=== PATIENT | female | born 1990 | race Caucasian/White ===

== ENCOUNTER → 2016-09-08 | Outpatient (CLI) | payer SELFPAY ==
[2016-09-08 10:19] VITALS: BMI 49.1
== END | disposition home or self-care (01) ==
LOC: MNTWWP 07:45
PROVIDERS: ATTEND Family Medicine
DX: R63.5 Abnormal weight gain (principal)
CPT/HCPCS: 97802

== ENCOUNTER → 2016-10-18 | Outpatient (CLI) | payer BC | END | disposition home or self-care (01) | LOC: LABWHC1 07:36 | PROVIDERS: ATTEND Nurse Practitioner | DX: E03.9 Hypothyroidism, unspecified (principal) | CPT/HCPCS: 36415; 84443 ==

== ENCOUNTER → 2016-12-29 | Outpatient (CLI) | payer BC | END | disposition home or self-care (01) | LOC: LABWHC1 07:38 | PROVIDERS: ATTEND Family Medicine | DX: E03.9 Hypothyroidism, unspecified (principal) | CPT/HCPCS: 36415; 84443 ==

== ENCOUNTER → 2020-06-16 | Outpatient (CLI) | payer MEDICAID ==
--- NOTE | 2020-06-16 15:38 | CONS ---
CONSULTATION DATE OF SERVICE: 06/16/2020 This 30-year-old lady has been evaluated in the Sleep Center for multiple awakenings from sleep, snoring and difficulties to initiate sleep. HISTORY OF PRESENT ILLNESS/SLEEP-WAKE EVALUATION: Usual sleep schedule is from 9:30 a.m. 2 to 5 p.m. 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 On days off from 10 p.m. to 4 a.m. The patient has difficulties falling asleep. Has TV set in bedroom. She sleeps in different position. She snores sometimes loudly and wakes up from sleep up to 6 times with nocturia. She also wakes up from sleep with episodes of choking. In the morning, she wakes up tired, falling asleep during the day, worry about her sleep. [place] Sleepiness Scale increased to 10. PAST MEDICAL HISTORY: Positive for hypertension, hypothyroidism. PAST SURGICAL HISTORY: Tonsillectomy, right wrist surgery. MEDICATIONS: Lisinopril 30 mg once a day, levothyroxine 75 mcg once a day, hydrochlorothiazide 25 mg once a day, trazodone 50 mg at bedtime, once a day. SOCIAL HISTORY: Negative for smoking or using alcohol. FAMILY HISTORY: Positive for hypertension by her father and sleep apnea by her mother. REVIEW OF SYSTEMS: Difficulties to initiate sleep, multiple awakenings from sleep. PHYSICAL EXAMINATION: GENERAL: lady without distress. VITAL SIGNS: BP 110/89, HR 90, RR 18, height 5 feet 5-1/2 inches, weight 301.4, temperature 97.3, oxygen saturation at room air 95%. HEENT: PERRLA, EOMI. Oropharynx low position of soft palate, Mallampati 3. NECK: 18- 1/2 inches in circumference. LUNGS: Clear to percussion and to auscultation. Good air exchange. No wheezing or rhonchi. HEART: S1, S2 regular. No murmurs, gallops, or rubs. ABDOMEN: Obese. EXTREMITIES: No clubbing or cyanosis. POLICY VALUE CALCULATOR: Awake, alert, and oriented X3. Cranial nerves 2 to 7 intact. There is no fasciculation or atrophy. noted. No focal deficits observed. IMPRESSION: 1. Loud snoring, awakenings from sleep 6 times with nocturia, small oropharyngeal air space, wide neck 18-1/2 inches in circumference, sleepiness, obstructive sleep apnea-hypopnea syndrome. 2. Possibly shift work sleep disorder with difficulties to initiate sleep. 3. Hypertension. 4. Hypothyroidism. 5. Status post tonsillectomy. 6. Status post right wrist surgery. PLAN: 1. Polysomnography for evaluation of patient's breathing during sleep. 2. CPAP/BiPAP titration if sleep study confirms obstructive sleep apnea-hypopnea syndrome. 3. Preferable position during sleep on the side. 4. No driving if patient feels any sleepiness. 5. I will see patient for follow up visit to explain results of testing and following plan. 6. To use dark glasses in the morning after work and before going to bed. Thank you very much for referring this patient for consultation. Sincerely, Ermias Martin MD, PhD, FAASM Diplomat of [employer] Warning Coordination Meteorologist of [facility] [place] MMODL / LUCÍAN: [id number] /
== END | disposition home or self-care (01) ==
LOC: SLEEP 13:57
PROVIDERS: ATTEND Internal Medicine
DX: G47.33 Obstructive sleep apnea (adult) (pediatric) (principal); I10 Essential (primary) hypertension; E03.9 Hypothyroidism, unspecified; Z79.899 Other long term (current) drug therapy; Z79.890 Hormone replacement therapy; Z98.890 Other specified postprocedural states
CPT/HCPCS: 99211

== ENCOUNTER → 2020-09-01 | Outpatient (CLI) | payer MEDICAID | END | disposition home or self-care (01) | LOC: EDBD 00:14 → LABMAIN 00:14 | PROVIDERS: ATTEND Specialist/Technologist Athletic Trainer | DX: R53.83 Other fatigue (principal) | CPT/HCPCS: 36415; 84443 ==

== ENCOUNTER → 2020-11-18 | Outpatient (CLI) | payer MEDICAID ==
--- NOTE | 2020-11-18 21:37 | SFUN ---
SLEEP CENTER FOLLOW UP NOTE DATE OF SERVICE: 11/18/2020. 30-year-old lady has been followed in Sleep Center for treatment of obstructive sleep apnea-hypopnea syndrome. Recently the patient had a polysomnogram which showed moderate obstructive sleep apnea and then titration which showed normalization of her breathing on CPAP. Subsequently I order for the patient CPAP equipment and today his her first visit after she was started on treatment with CPAP. The patient is able to use CPAP equipment and feels better after using CPAP. Sleeps better and feel more refreshed in the morning. Sometimes she takes her mask off during the night and she may not realize that the mask is off. 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 I discussed results of sleep studies with patient in detail. Her [place] Sleepiness Scale today is 2, which is perfect. I checked CPAP unit, pressure in the range 5 to 12 with average pressure of 11 cm of water. Usage is 23/ nights. Average usage 5.5 hours per night. Leak is 14 L/minute apnea-hypopnea index 0.9, which is perfect. MEDICATIONS: Lisinopril 30 mg once a day. Levothyroxine 75 mcg once a day. Hydrochlorothiazide 25 mg once a day. Trazodone 50 mg at bedtime. PHYSICAL EXAM: The patient in no distress. BP 130/71, HR 76, RR 15, weight 291 pounds, temperature 97.5, oxygen saturation at room air 98%. HEENT: PERRLA, EOMI. Oropharynx low position of soft palate. Mallampati 3. NECK: Supple, no JVD. Thyroid is not palpable. LUNGS: Clear to percussion and to auscultation. Good air exchange. No wheezing or rhonchi. HEART: S1, S2 regular. No murmurs, gallops, or rubs. ABDOMEN: Slightly obese. Soft and nontender. Bowel sounds are present. No organomegaly appreciated. EXTREMITIES: No clubbing or cyanosis. NEWS PRODUCTION ASSISTANT: Awake, alert, and oriented X3. Cranial nerves 2 to 7 intact. There is no fasciculation or atrophy noted. No focal deficits observed. IMPRESSION: 1. Moderate obstructive sleep apnea-hypopnea syndrome; apnea-hypopnea index 18.3 with oxygen desaturation to 84.3%, normalization of breathing on CPAP. Apnea-hypopnea index 0.92. 2. The patient feels better with CPAP. Sometimes the mask goes off in the middle of the night. 3. Hypertension. 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 5. Hypothyroidism. 6. Status post tonsillectomy. 7. Status post right wrist surgery. PLAN: 1. Patient will continue to use PAP equipment every night for the whole night. 2. Sleep hygiene with regular time in bed for at least 7-1/2 to 8 hours. 3. Precautions related to driving. No driving if feeling sleepiness. 4. I will maintain all necessary prescription for PAP supplies including mask, tube, filters. 5. Watching weight. 6. Follow-up visit in 6 months or earlier if patient has any problems. Thank you very much for allowing me to participate in management of your patient. Sincerely, Ermias Martin MD, PhD, FAASM Diplomat of [employer] Sleep Medicine Board of [employer] Supervising Law Enforcement Analyst of [facility] [place] MMMEDL / LUCÍAN: [id number] /
== END ==
LOC: SLEEP 13:22
PROVIDERS: ATTEND Internal Medicine
DX: G47.33 Obstructive sleep apnea (adult) (pediatric) (principal); I10 Essential (primary) hypertension; E03.9 Hypothyroidism, unspecified; Z90.89 Acquired absence of other organs; Z98.890 Other specified postprocedural states; Z99.89 Dependence on other enabling machines and devices; Z79.890 Hormone replacement therapy; Z79.899 Other long term (current) drug therapy; Z88.0 Allergy status to penicillin; Z91.09 Other allergy status, other than to drugs and biological substances

== ENCOUNTER → 2021-03-13 | Outpatient (CLI) | payer MEDICAID | LOC: LABMAIN 06:11 | PROVIDERS: ATTEND Specialist/Technologist Athletic Trainer | DX: Z20.822 Contact with and (suspected) exposure to COVID-19 (principal); R05.9 Cough, unspecified | CPT/HCPCS: 87635 ==

== ENCOUNTER 2021-03-21 22:27 | Emergency (ER) | payer MEDICAID ==
[2021-03-21] MEDS ORDERED: SODIUM CHLORIDE 0.9% 1,000 ML IV STA (22:57)
[2021-03-21 23:42] LABS: Basophils % (A) 1 %; Eosinophils # (A) 0.1 k/uL (0-0.7); Eosinophils % (A) 1 %; HCT 42.5 % (34.0-46.0); HGB 15.3 gm/dL (11.4-16.0); Lymphocytes # (A) 0.7 k/uL (1.0-4.8); Lymphocytes % (A) 13 %; MCHC 35.9 g/dL (31.0-37.0); MCV 94.7 fL (80.0-100.0); Mean Platelet Volume 7.8; Monocytes # (A) 0.4 k/uL (0-1.0); Monocytes % (A) 8 %; Neutrophils # (A) 4.2 k/uL (1.3-7.7); Neutrophils % (A) 77 %; Platelet Count 210 k/uL (150-450); RBC 4.49 m/uL (3.80-5.40); RDW 12.3 % (11.5-15.5); WBC 5.4 k/uL (3.8-10.6)
[2021-03-22 00:01] LABS: ALT 39 U/L (4-34); AST 45 U/L (14-36); African American GFR (CKD) >90 (>60 ml/min/1.73 sqM); Albumin 4.7 g/dL (3.5-5.0); Alkaline Phosphatase 94 U/L (38-126); Anion Gap 13 mmol/L; Blood Urea Nitrogen 14 mg/dL (7-17); Calcium 9.8 mg/dL (8.4-10.2); Carbon Dioxide 18 mmol/L (22-30); Chloride 106 mmol/L (98-107); Glucose 101 mg/dL (74-99); Magnesium 1.5 mg/dL (1.6-2.3); Non-African American GFR(CKD) >90 (>60 ml/min/1.73 sqM); Potassium 4.2 mmol/L (3.5-5.1); Sodium 137 mmol/L (137-145); Total Protein 8.4 g/dL (6.3-8.2)
[2021-03-22] MEDS ORDERED: MAGNESIUM OXIDE 400 MG TAB PO STA (00:13)
[2021-03-22 01:07] LABS: Appearance,Urine Cloudy (Clear); Bacteria,Urine Rare /hpf; Bilirubin,Urine Negative (Negative); Blood,Urine Negative (Negative); Color,Urine Yellow; Glucose,Urine (UA) Negative (Negative); Hyaline Casts,Urine 5 /lpf (0-2); Ketones,Urine 1+ (Negative); Leukocyte Esterase,Urine Negative (Negative); Mucus,Urine Many /hpf; Nitrite,Urine Negative (Negative); Protein,Urine 1+ (Negative); RBC,Urine 1 /hpf (0-5); Specific Gravity,Urine 1.035 (1.001-1.035); Squamous Epithelial Cell,Urine 11 /hpf (0-4); WBC,Urine 1 /hpf (0-5)
--- NOTE | 2021-03-22 01:23 | ED ---
Dizziness HPI - General Chief Complaint: Dizziness Stated Complaint: Hypertension Source: patient Mode of arrival: ambulatory - History of Present Illness Initial Comments: 31-year-old female patient presents to the emergency department today for evaluation of dizziness, elevated blood pressure, feeling unwell. States symptoms have been going on for the last couple of weeks on and off. States tonight she was at work when she became very hot, felt dizzy. States she feels nauseated. Denies any chest pain or shortness of breath. States that her physician did recently increase her blood pressure medication she started to 100 mg atenolol 2 days ago. She was receiving an injection of xolair for pruritis. With her last injection she did have a similar reaction and her physician is concerned that her symptoms may be related to this. Denies chance of . Tested and was negative for COVID-19. - Related Data Home Medications Medication Instructions Recorded Confirmed Drospirenone [Slynd] 4 mg PO DAILY 09/07/20 01/27/21 Levothyroxine Sodium [Synthroid] 75 mcg PO DAILY 09/07/20 01/27/21 atenoloL 100 mg PO BID 09/07/20 01/27/21 Omalizumab [Xolair] 300 mg SQ ONCE 11/04/20 01/27/21 Allergies Allergy/AdvReac Type Severity Reaction Status Date / Time nickel Allergy Rash/Hives Verified 03/21/21 23:14 Penicillins Allergy Diarrhea Verified 03/21/21 23:14 Review of Systems ROS Statement: Those systems with pertinent positive or pertinent negative responses have been documented in the HPI. ROS Other: All systems not noted in ROS Statement are negative. Past Medical History Past Medical History: Hypertension, Sleep Apnea/CPAP/BIPAP, Thyroid Disorder History of Any Multi-Drug Resistant Organisms: None Reported Past Surgical History: Adenoidectomy, Tonsillectomy Past Anesthesia/Blood Transfusion Reactions: No Reported Reaction Past Psychological History: Anxiety, Depression Smoking Status: Never smoker Past Alcohol Use History: None Reported Past Drug Use History: None Reported General Exam General appearance: alert, in no apparent distress, other (This is a well- developed, well-nourished adult female in no acute distress.) Eye exam: Present: normal appearance, PERRL, EOMI. Absent: scleral icterus, conjunctival injection, periorbital swelling ENT exam: Present: normal exam, normal oropharynx, mucous membranes moist Respiratory exam: Present: normal lung sounds bilaterally. Absent: respiratory distress, wheezes, rales, rhonchi, stridor Cardiovascular Exam: Present: regular rate, normal rhythm, normal heart sounds. Absent: systolic murmur, diastolic murmur, rubs, gallop, clicks GI/Abdominal exam: Present: soft, normal bowel sounds. Absent: distended, tenderness, guarding, rebound, rigid Neurological exam: Present: alert, oriented X3, CN II-XII intact Psychiatric exam: Present: normal affect, normal mood Skin exam: Present: warm, dry, intact, normal color. Absent: rash Course Vital Signs 03/21/21 03/22/21 03/22/21 23:15 00:51 02:21 Pulse Rate 83 83 73 Respiratory 18 19 20 Rate Blood Pressure 146/115 131/95 163/101 O2 Sat by Pulse 97 95 100 Oximetry EKG Findings - EKG Comments: EKG Findings:: EKG obtained at 2329 shows normal sinus rhythm with a ventricular rate of 69, MT interval 138, QRS duration 80, QT 436, QTc 467. No evidence of ST elevation or depression. Medical Decision Making - Medical Decision Making 31-year-old female patient presents the emergency department for evaluation of elevated blood pressure and dizziness. Physical examination is unremarkable. Labs reviewed and are unremarkable. EKG showed normal sinus rhythm. She tested negative for COVID-19. She is not . I did discuss findings and results with her. She'll be discharged. The primary care physician for recheck as soon as possible. Return parameters were discussed in detail. She verbalizes understanding and agrees with this plan. My attending is Dr. Gee. - Lab Data Result diagrams: 03/21/21 23:15 03/21/21 23:15 Lab Results 03/21/21 03/21/21 03/21/21 Range/Units 23:15 23:15 23:15 WBC 5.4 (3.8-10.6) k/uL RBC 4.49 (3.80-5.40) m/uL Hgb 15.3 (11.4-16.0) gm/dL Hct 42.5 (34.0-46.0) % MCV 94.7 (80.0-100.0) fL MCH 34.0 (25.0-35.0) pg MCHC 35.9 (31.0-37.0) g/dL RDW 12.3 (11.5-15.5) % Plt Count 210 (150-450) k/uL MPV 7.8 Neutrophils % 77 % Lymphocytes % 13 % Monocytes % 8 % Eosinophils % 1 % Basophils % 1 % Neutrophils # 4.2 (1.3-7.7) k/uL Lymphocytes # 0.7 L (1.0-4.8) k/uL Monocytes # 0.4 (0-1.0) k/uL Eosinophils # 0.1 (0-0.7) k/uL Basophils # 0.0 (0-0.2) k/uL Sodium 137 (137-145) mmol/L Potassium 4.2 (3.5-5.1) mmol/L Chloride 106 (98-107) mmol/L Carbon Dioxide 18 L (22-30) mmol/L Anion Gap 13 mmol/L BUN 14 (7-17) mg/dL Creatinine 0.65 (0.52-1.04) mg/dL Est GFR (CKD-EPI)AfAm >90 (>60 ml/min/1.73 sqM) Est GFR (CKD-EPI)NonAf >90 (>60 ml/min/1.73 sqM) Glucose 101 H (74-99) mg/dL Plasma Lactic Acid Ac 1.8 (0.7-2.0) mmol/L Calcium 9.8 (8.4-10.2) mg/dL Magnesium 1.5 L (1.6-2.3) mg/dL Total Bilirubin 1.0 (0.2-1.3) mg/dL AST 45 H (14-36) U/L ALT 39 H (4-34) U/L Alkaline Phosphatase 94 (38-126) U/L Troponin I (0.000-0.034) ng/mL Total Protein 8.4 H (6.3-8.2) g/dL Albumin 4.7 (3.5-5.0) g/dL TSH 2.780 (0.465-4.680) mIU/L Urine Color Urine Appearance (Clear) Urine pH (5.0-8.0) Ur Specific [place] (1.001-1.035) Urine Protein (Negative) Urine Glucose (UA) (Negative) Urine Ketones (Negative) Urine Blood (Negative) Urine Nitrite (Negative) Urine Bilirubin (Negative) Urine Urobilinogen (<2.0) mg/dL Ur Leukocyte Esterase (Negative) Urine RBC (0-5) /hpf Urine WBC (0-5) /hpf Ur Squamous Epith Cells (0-4) /hpf Urine Bacteria (None) /hpf Hyaline Casts (0-2) /lpf Urine Mucus (None) /hpf Urine HCG, Qual (Not Detectd) Coronavirus (PCR) (Not Detectd) 03/21/21 03/21/21 03/21/21 Range/Units 23:15 23:34 23:34 WBC (3.8-10.6) k/uL RBC (3.80-5.40) m/uL Hgb (11.4-16.0) gm/dL Hct (34.0-46.0) % MCV (80.0-100.0) fL MCH (25.0-35.0) pg MCHC (31.0-37.0) g/dL RDW (11.5-15.5) % Plt Count (150-450) k/uL MPV Neutrophils % % Lymphocytes % % Monocytes % % Eosinophils % % Basophils % % Neutrophils # (1.3-7.7) k/uL Lymphocytes # (1.0-4.8) k/uL Monocytes # (0-1.0) k/uL Eosinophils # (0-0.7) k/uL Basophils # (0-0.2) k/uL Sodium (137-145) mmol/L Potassium (3.5-5.1) mmol/L Chloride (98-107) mmol/L Carbon Dioxide (22-30) mmol/L Anion Gap mmol/L BUN (7-17) mg/dL Creatinine (0.52-1.04) mg/dL Est GFR (CKD-EPI)AfAm (>60 ml/min/1.73 sqM) Est GFR (CKD-EPI)NonAf (>60 ml/min/1.73 sqM) Glucose (74-99) mg/dL Plasma Lactic Acid Ac (0.7-2.0) mmol/L Calcium (8.4-10.2) mg/dL Magnesium (1.6-2.3) mg/dL Total Bilirubin (0.2-1.3) mg/dL AST (14-36) U/L ALT (4-34) U/L Alkaline Phosphatase (38-126) U/L Troponin I <0.012 (0.000-0.034) ng/mL Total Protein (6.3-8.2) g/dL Albumin (3.5-5.0) g/dL TSH (0.465-4.680) mIU/L Urine Color Yellow Urine Appearance Cloudy H (Clear) Urine pH 6.0 (5.0-8.0) Ur Specific [place] 1.035 (1.001-1.035) Urine Protein 1+ H (Negative) Urine Glucose (UA) Negative (Negative) Urine Ketones 1+ H (Negative) Urine Blood Negative (Negative) Urine Nitrite Negative (Negative) Urine Bilirubin Negative (Negative) Urine Urobilinogen 2.0 (<2.0) mg/dL Ur Leukocyte Esterase Negative (Negative) Urine RBC 1 (0-5) /hpf Urine WBC 1 (0-5) /hpf Ur Squamous Epith Cells 11 H (0-4) /hpf Urine Bacteria Rare H (None) /hpf Hyaline Casts 5 H (0-2) /lpf Urine Mucus Many H (None) /hpf Urine HCG, Qual Not Detected (Not Detectd) Coronavirus (PCR) (Not Detectd) 03/22/21 Range/Units 00:07 WBC (3.8-10.6) k/uL RBC (3.80-5.40) m/uL Hgb (11.4-16.0) gm/dL Hct (34.0-46.0) % MCV (80.0-100.0) fL MCH (25.0-35.0) pg MCHC (31.0-37.0) g/dL RDW (11.5-15.5) % Plt Count (150-450) k/uL MPV Neutrophils % % Lymphocytes % % Monocytes % % Eosinophils % % Basophils % % Neutrophils # (1.3-7.7) k/uL Lymphocytes # (1.0-4.8) k/uL Monocytes # (0-1.0) k/uL Eosinophils # (0-0.7) k/uL Basophils # (0-0.2) k/uL Sodium (137-145) mmol/L Potassium (3.5-5.1) mmol/L Chloride (98-107) mmol/L Carbon Dioxide (22-30) mmol/L Anion Gap mmol/L BUN (7-17) mg/dL Creatinine (0.52-1.04) mg/dL Est GFR (CKD-EPI)AfAm (>60 ml/min/1.73 sqM) Est GFR (CKD-EPI)NonAf (>60 ml/min/1.73 sqM) Glucose (74-99) mg/dL Plasma Lactic Acid Ac (0.7-2.0) mmol/L Calcium (8.4-10.2) mg/dL Magnesium (1.6-2.3) mg/dL Total Bilirubin (0.2-1.3) mg/dL AST (14-36) U/L ALT (4-34) U/L Alkaline Phosphatase (38-126) U/L Troponin I (0.000-0.034) ng/mL Total Protein (6.3-8.2) g/dL Albumin (3.5-5.0) g/dL TSH (0.465-4.680) mIU/L Urine Color Urine Appearance (Clear) Urine pH (5.0-8.0) Ur Specific [place] (1.001-1.035) Urine Protein (Negative) Urine Glucose (UA) (Negative) Urine Ketones (Negative) Urine Blood (Negative) Urine Nitrite (Negative) Urine Bilirubin (Negative) Urine Urobilinogen (<2.0) mg/dL Ur Leukocyte Esterase (Negative) Urine RBC (0-5) /hpf Urine WBC (0-5) /hpf Ur Squamous Epith Cells (0-4) /hpf Urine Bacteria (None) /hpf Hyaline Casts (0-2) /lpf Urine Mucus (None) /hpf Urine HCG, Qual (Not Detectd) Coronavirus (PCR) Not Detected (Not Detectd) Disposition Clinical Impression: Dizziness, Hypertension Disposition: HOME SELF-CARE Condition: Good Instructions (If sedation given, give patient instructions): Hypertension (ED), Dizziness (ED) Additional Instructions: Follow up with your primary care physician for recheck in 1-2 days. Discussed possibility of a Holter monitor. Return for any new, worsening, or concerning symptoms. Is patient prescribed a controlled substance at d/c from ED?: No Referrals: Suzi Leon MD [Primary Care Provider] - 1-2 days Time of Disposition: 01:36
[2021-03-22 02:22] VITALS: BP 163/101; PULSE 73; RESP 20
== END 2021-03-22 02:21 | disposition home or self-care (01) ==
LOC: EC 22:27
DX: R42 Dizziness and giddiness (principal); I10 Essential (primary) hypertension; F41.9 Anxiety disorder, unspecified; F32.A Depression, unspecified
CPT/HCPCS: 36415; 80053; 81001; 81025; 83605; 83735; 84443; 84484; 85025; 87635; 93005; 96360; 99284

== ENCOUNTER 2022-05-02 05:35 | Emergency (ER) | payer MEDICAID ==
[2022-05-02 05:42] VITALS: BP 139/88; RESP 18; TEMP 98.3
--- NOTE | 2022-05-02 06:04 | XR ---
EXAMINATION TYPE: XR ankle limited RT DATE OF EXAM: 05/02/2022 COMPARISON: NONE HISTORY: Fall. Pain TECHNIQUE: 2 views FINDINGS: There is separation of the distal tibia and fibula consistent with a ligamentous tear. Ther e is a 2 cm chip fracture of the posterior lateral distal tibia. This is a posterior malleolus fractu re. There is no dislocation. There is widening of the ankle mortise and lateral displacement of the t alus in relation to the tibia. Fibula appears intact. Talus is intact. IMPRESSION: There is large posterior malleolus chip fracture with significant ligamentous tear of the distal tibia fibular ligament. No dislocation.
[2022-05-02] MEDS ORDERED: ONDANSETRON ODT 4 MG TAB PO STA (06:08)
[2022-05-02] MEDS ORDERED: HYDROmorphone 1 MG/ML 1 ML SYRINGE IM STA (06:08)
[2022-05-02 06:18] VITALS: PULSE 100
--- NOTE | 2022-05-02 06:18 | ED ---
Lower Extremity Injury HPI - General Chief Complaint: Extremity Injury, Lower Stated Complaint: rt ankle injury Time Seen by Provider: 05/02/22 06:04 Source: patient, RN notes reviewed, old records reviewed Mode of arrival: wheelchair Limitations: no limitations - History of Present Illness Initial Comments: Pleasant, nontoxic-appearing 32-year-old female presents to the emergency room after rolling her ankle at home around 4 AM stepping off a step. Unable to bear weight. No other injuries. MD Complaint: ankle injury -: hour(s) (2) Injury: Ankle: Right Type of Injury: eversion Place: home Severity scale (1-10): 8 Improves With: immobilization Worsens With: weight bearing, movement Context: other (rolled ankle on step) - Related Data Home Medications Medication Instructions Recorded Confirmed Drospirenone [Slynd] 4 mg PO DAILY 09/07/20 01/27/21 Levothyroxine Sodium [Synthroid] 75 mcg PO DAILY 09/07/20 01/27/21 atenoloL 100 mg PO BID 09/07/20 01/27/21 Omalizumab [Xolair] 300 mg SQ ONCE 11/04/20 01/27/21 Previous Rx's Medication Instructions Recorded HYDROcodone/APAP 5-325MG [[place] 1 tab PO Q4HR PRN 3 Days #18 tab 05/02/22 5-325] Allergies Allergy/AdvReac Type Severity Reaction Status Date / Time nickel Allergy Rash/Hives Verified 05/02/22 05:39 Penicillins Allergy Diarrhea Verified 05/02/22 05:39 Review of Systems ROS Statement: Those systems with pertinent positive or pertinent negative responses have been documented in the HPI. ROS Other: All systems not noted in ROS Statement are negative. Past Medical History Past Medical History: Hypertension, Sleep Apnea/CPAP/BIPAP, Thyroid Disorder History of Any Multi-Drug Resistant Organisms: None Reported Past Surgical History: Adenoidectomy, Tonsillectomy Past Anesthesia/Blood Transfusion Reactions: No Reported Reaction Past Psychological History: Anxiety, Depression Smoking Status: Never smoker Past Alcohol Use History: None Reported Past Drug Use History: None Reported General Exam Limitations: no limitations General appearance: alert, in no apparent distress Head exam: Present: atraumatic Respiratory exam: Absent: respiratory distress, accessory muscle use Cardiovascular Exam: Present: tachycardia Right Lower Leg exam: Absent: tenderness, swelling, erythema, Homans' sign Ankle exam: Present: tenderness, swelling, ecchymosis, anterior draw sign. Absent: full ROM, deformity Foot/Toe exam: Absent: deformity, crepitus, puncture wound, tenderness at base of 5th metatarsal Neurovascular tendon exam: Present: no vascular compromise. Absent: abnormal cap refill, sensory deficit, extremity cold to touch, pallor, decreased fine/light touch, foot drop, peroneal nerve deficit Gait: unable to bear weight Neurological exam: Present: alert, oriented X3 Psychiatric exam: Present: normal affect, normal mood Skin exam: Present: warm, dry, normal color. Absent: cyanosis, diaphoretic, pallor Course Vital Signs 05/02/22 05/02/22 05:40 06:17 Temperature 98.3 F Pulse Rate 112 H 100 Respiratory 18 Rate Blood Pressure 139/88 O2 Sat by Pulse 98 Oximetry Procedures - Orthopedic Splinting/Casting Injury #1 Side: right Lower Extremity Injury Location: short leg, ankle Lower Extremity Immobilizer: Cristian wrap, synthetic pre-padded splint Other Orthopedic Equipment: crutches Medical Decision Making - Medical Decision Making X-ray interpreted by me shows a chip fracture distal posterior malleolus. Radiologist interpretation is a large posterior malleolus chip fracture with significant ligamentous tear of the distal tibia fibular ligament. Patient was given pain medication in the emergency room, placed in a short leg posterior splint and given crutches. She is neurovascularly intact prior to and post-splinting. Directed to follow up with orthopedics this week. Return if any new or concerning symptoms. Case discussed with Dr. Le. Was pt. sent in by a medical professional or institution? @ -No Did you speak to anyone other than the patient for history? @ -No Did you review nursing and triage notes? @ -Yes I agree Were old charts reviewed? @ -No Differential Diagnosis? @ -Ankle sprain, fracture, dislocation X-rays interpreted by me (1pt min.)? @ -Yes as above What testing was considered but not performed? (CT, X-rays, U/S, labs)? Why? @No What meds were considered but not given? Why? @ -No Did you discuss the management of the patient with other professionals? @ -No Did you reconcile home meds? @ -No Was smoking cessation discussed for >3mins.? @ -Not applicable Was critical care preformed (if so, how long)? @ -No Were there social determinants of health that impacted care today? How? (Homelessness, low income, unemployed, alcoholism, drug addiction, transportation, low edu. Level, literacy, decrease access to med. care, shelter, rehab)? @ -None Was there de-escalation of care discussed even if they declined? (Discuss DNR or withdrawal of care, Hospice)? @ -No What co-morbidities impacted this encounter? (DM, HTN, Smoking, COPD, CAD, Cancer, CVA, Hep., AIDS, mental health diagnosis, sleep apnea, morbid obesity)? @ -No Was patient admitted / discharged? @ -Discharged Undiagnosed new problem with uncertain prognosis? @ -[none] Drug Therapy requiring intensive monitoring for toxicity (Heparin, Nitro, Insulin, Cardizem)? @ -No Were any procedures done? @ -short leg posterior splint applied Diagnosis/symptom? @ -Distal posterior malleolous chip fracture with ligamentous tear Acute, or Chronic, or Acute on Chronic? @ -Acute Uncomplicated (without systemic symptoms) or Complicated (systemic symptoms)? @ -Uncomplicated Side effects of treatment? @ -[none] Exacerbation, Progression, or Severe Exacerbation] @ -[no] Poses a threat to life or bodily function? @ -[no] Disposition Clinical Impression: Fracture, posterior malleolus Disposition: HOME SELF-CARE Condition: Good Additional Instructions: Rest, ice, elevate and wear splint until seen by orthopedics. Use crutches. Tylenol Motrin as needed for pain or discomfort. Return to the emergency room with any new or concerning symptoms including increased pain. pallor or numbness. Prescriptions: HYDROcodone/APAP 5-325MG [[place] 5-325] 1 tab PO Q4HR PRN 3 Days #18 tab PRN Reason: Pain Is patient prescribed a controlled substance at d/c from ED?: Yes When asked, does pt state using other controlled substances?: No If prescribed controlled substance>3 days was MAPS reviewed?: Prescribed <3 Days If opioid is for acute pain is fill amount 7 days or less?: Yes Referrals: Suzi Leon MD [Primary Care Provider] - 1-2 days Maxx Cueto MD [Medical Doctor] - 1-2 days Time of Disposition: 06:50
--- NOTE | 2022-05-02 08:42 | ED ---
Disposition Clinical Impression: Fracture, posterior malleolus Disposition: HOME SELF-CARE Condition: Good Additional Instructions: Rest, ice, elevate and wear splint until seen by orthopedics. Use crutches. Tylenol Motrin as needed for pain or discomfort. Return to the emergency room with any new or concerning symptoms including increased pain. pallor or numbness. Prescriptions: HYDROcodone/APAP 5-325MG [[place] 5-325] 1 tab PO Q4HR PRN 3 Days #18 tab PRN Reason: Pain Ondansetron Odt [Zofran Odt] 4 mg PO Q8HR PRN #15 tab PRN Reason: Nausea Is patient prescribed a controlled substance at d/c from ED?: Yes When asked, does pt state using other controlled substances?: No If prescribed controlled substance>3 days was MAPS reviewed?: Prescribed <3 Days If opioid is for acute pain is fill amount 7 days or less?: No If Rx opioid, was Start Talking consent form obtained?: No Referrals: Suzi Leon MD [Primary Care Provider] - 1-2 days Maxx Cueto MD [Medical Doctor] - 1-2 days
== END 2022-05-02 07:14 | disposition home or self-care (01) ==
LOC: EC 05:35
DX: S82.391A Other fracture of lower end of right tibia, initial encounter for closed fracture (principal); S82.491A Other fracture of shaft of right fibula, initial encounter for closed fracture; I10 Essential (primary) hypertension; G47.30 Sleep apnea, unspecified; E07.9 Disorder of thyroid, unspecified; F41.9 Anxiety disorder, unspecified; F32.A Depression, unspecified; Z88.0 Allergy status to penicillin; Z91.048 Other nonmedicinal substance allergy status; Z79.890 Hormone replacement therapy; W10.9XXA Fall (on) (from) unspecified stairs and steps, initial encounter
CPT/HCPCS: 73600; 99283; 96372; 29515; J1170

== ENCOUNTER 2022-05-08 09:48 | Day surgery (SDC) | payer MEDICAID ==
[2022-05-03 16:07] VITALS: BMI 41.5
[~2022-05-08 09:48] MED LIST: DEXAMETHASONE SOD PHOSPHATE 4 MG/ML 1 ML VIAL IV ONE; HYDROmorphone 0.5 MG/0.5 ML SYRINGE IVP PRN; LACTATED RINGERS 1,000 ML IV SCH; LIDOCAINE 1% (10MG/ML) FOR IV START INTRADERMA PRN; ONDANSETRON 4 MG/2 ML VIAL IVP ONE; SCOPOLAMINE 1 MG/72 HR PATCH TRANSDERM ONE
[2022-05-08] MEDS ORDERED: SCOPOLAMINE 1 MG/72 HR PATCH TRANSDERM ONE (10:45)
[2022-05-08] MEDS ORDERED: LACTATED RINGERS 1,000 ML IV ONE ×2 (10:45→14:40)
[2022-05-08] MEDS ORDERED: DEXAMETHASONE SOD PHOSPHATE 4 MG/ML 1 ML VIAL IVP ONE (10:45)
[2022-05-08] MEDS ORDERED: ONDANSETRON 4 MG/2 ML VIAL IVP ONE (10:45)
[2022-05-08] MEDS ORDERED: MIDAZOLAM 2 MG/2 ML VIAL IVP ONE (10:52)
[2022-05-08] MEDS ORDERED: fentaNYL (PF) 50 MCG/1 ML VIAL IVP ONE (10:52)
[2022-05-08] MEDS ORDERED: fentaNYL (PF) 50 MCG/ML 2 ML AMP ONE (12:15)
[2022-05-08] MEDS ORDERED: LIDOCAINE 2% INJ 20 MG/ML (2 ML VIAL) ONE (12:15)
[2022-05-08] MEDS ORDERED: GLYCOPYRROLATE 0.2 MG/ML 2 ML VIAL ONE (12:15)
[2022-05-08] MEDS ORDERED: HYDROmorphone (PF) 1 MG/ML ONE (12:15)
[2022-05-08] MEDS ORDERED: PROPOFOL 10 MG/ML 20 ML VIAL IV ONE (12:15)
[2022-05-08] MEDS ORDERED: NEOSTIGMINE 1 MG/ML 10 ML VIAL ONE (12:15)
[2022-05-08] MEDS ORDERED: PHENYLEPHRINE-0.9% NACL SYG 1,000 MCG/10 ML SYRINGE ONE (12:15)
[2022-05-08] MEDS ORDERED: SUCCINYLCHOLINE CHLORIDE 200 MG/10 ML VIAL IV ONE (12:15)
[2022-05-08] MEDS ORDERED: ROPIVACAINE 5 MG/ML 30 ML VIAL ONE (12:15)
[2022-05-08] MEDS ORDERED: ROCURONIUM 10 MG/ML (5 ML VIAL) IV ONE (12:15)
[2022-05-08] MEDS ORDERED: DEXAMETHASONE SOD PHOSPHATE 4 MG/ML 1 ML VIAL ONE (12:15)
[2022-05-08] MEDS ORDERED: MIDAZOLAM 2 MG/2 ML VIAL ONE (12:15)
--- NOTE | 2022-05-08 14:56 | XR ---
EXAMINATION TYPE: XR ankle limited RT DATE OF EXAM: 05/08/2022 COMPARISON: NONE TECHNIQUE: Two views submitted HISTORY: Post op FINDINGS: There is postsurgical changes. Orthopedic plate noted adjacent to the fibula contains a single screw and may be slightly offset. Correlate clinically. Surgical scott noted. Postsurgical change involvi ng both the tibia and fibula. IMPRESSION: 1. Postoperative changes
--- NOTE | 2022-05-08 14:56 | FL ---
EXAMINATION TYPE: FL guidance operating room DATE OF EXAM: 05/08/2022 HISTORY: Fluoroscopy time 50 seconds of fluoroscopy provided. IMPRESSION: 1. Fluoroscopy time.
[2022-05-08 15:04] VITALS: TEMP 97
[2022-05-08 15:20] VITALS: RESP 16
--- NOTE | 2022-05-08 15:36 | P.OP ---
Date of Procedure: 05/08/22 Preoperative Diagnosis: 1. Displaced fracture of the lower end of the right tibia 2. Ruptured anterior inferior tibial-fibular ligament right ankle 3. Ruptured deltoid ligament right ankle Postoperative Diagnosis: 1. Same 2. Same 3. Same Procedure(s) Performed: 1. Open repair of fracture of weightbearing surface of the right tibia 2. Open reduction with internal fixation right syndesmotic rupture 3 Open repair anterior inferior tibial-fibular ligament right ankle 4. Open repair deltoid ligament right ankle Implants: Arthrex tight rope Arthrex fiber Todd anchors 2 Novastep Farnham 3 hole posterior malleolar plate with screws Novastep Farnham 2 hole plate with 1 screw Anesthesia: SARAH Surgeon: Denys Mcgrath Estimated Blood Loss (ml): 10 Pathology: none sent Condition: stable Disposition: PACU Description of Procedure: Prior to the patient being brought to the operative room, anesthesia administered a nerve block on the right lower extremity. The patient brought into the operating room where timeout was taken to confirm correct patient identifiers, correct laterality of surgery and correct procedure. Once the staff were in agreement with the timeout, the patient's induced and placed under general anesthesia. The patient was transferred to the operating table in the prone position. His position was satisfactory a well-padded tourniquet was placed on the right thigh and then the right leg was prepped and draped in usual manner. The right leg was exsanguinated and the tourniquet inflated to 250 mmHg. Attention directed over the posterior lateral ankle where an incision was made between the Achilles tendon and the peroneal tendons. The down to the subcutaneous tissue careful to identify, avoid, and retract any neurovascular structures and cauterize any bleeding vessels. Blunt dissection was carried down to the deep fascia which was incised exposing the muscle bellies of the peroneal tendons as well as the flexor hallucis longus. The muscles were split at the septum and then retracted medially and laterally to continue dissection down the posterior aspect of the tibia. There is a hematoma in the area of the fracture that was evacuated and debrided and removed. The posterior lateral tibial fracture was identified and freed from the superior soft tissue attachments but leaving the posterior inferior tibial-fibular ligament intact. Optic was used to bring the fragment inferiorly while simultaneously dorsiflexing the ankle and then once alignment fluoroscopy was used to make sure that it was anatomically aligned. Once alignment of the temporary guidewires placed in a fracture so didn't migrate. A posterior lateral malleolar plate was then positioned and adjusted under fluoroscopy into position was satisfactory. Temporary fixation was inserted the distal screws across the fracture were place d first line the fracture to compress both were drilled and situated avoid tibiotalar joint. Fluoroscopy confirmed proper placement of the plate as well as the initial hardware. The third screw was then placed superior to the fracture line for anti-glide purposes. Screw was placed through the plate into the tibia. Final fluoroscopic imaging showed anatomic alignment of the fracture as well as maintenance of the ankle joint. All hardware was properly positioned. There is thoroughly irrigated with anatomic saline. Deep closure was done with 2-0 Vicryl. Subcu closure done for Monocryl. Skin closure done with scott. The incision was covered with a sterile dressing the tourniquet released. At this point we will prepping the patient to be rolled onto the supine position. The bed was brought into the room and the patient was rolled onto the supine position on the bed and then transferred back to the operative room table in the supine position. The tourniquet was replaced on the right thigh and then a bump was placed underneath the right hip to internally rotate the right leg. The right leg was then prepped and draped in usual manner. The initial tourniquet time was approximately 47 minutes. The leg was again exsanguinated and the tourniquet inflated to 250 mmHg. Attention was directed over the medial malleolus were curvilinear incision was made anterior to the medial malleolus. It was deepened down the saphenous tissue careful to identify, avoid, and retract any neurovascular structures and cauterize any bleeding vessels. Blunt dissection was continued down to the deltoid ligament. The deltoid ligament had completely avulsed off the anterior surface of the medial malleolus and was within the medial gutter. A Kiko was used to remove the cortical bone of the anterior surface of the medial malleolus to help facilitate re-adhesion. Drill holes for the fiber Luis Carlos anchors were made in the medial malleolus one anterior one more distal. Anchors were inserted and impacted to proper depth. The inserters were removed and then tension placed on the suture to lock the anchor in the bone. The wound is thoroughly irrigated with antibiotic saline. The suture on the anchors was then used to capture the deltoid ligament and pull it out of the medial gutter and then with the ankle inverted repair the deltoid ligament back to the medial malleolus. Once com pleted the deep closure was completed with 2-0 Vicryl, subcu closure done with Monocryl and skin closure done with scott. Then attention was directed over the anterior lateral ankle where an incision was made over the tibial fibular articulation. Incision was deepened under the saphenous tissue careful to identify, avoid, and retract any neurovascular structures and cauterize any bleeding vessels. Dissection was continued down to the anterior inferior tibial-fibular ligament. Once identified ankle was stressed and there is significant gapping at the syndesmosis. Bluntness mentation was used to remove any splint interposing soft tissue and the syndesmotic articulation. Once completed a large clamp was placed across the ankle joint to reduce the syndesmosis. The clamp was tensioned appropriately while holding the ankle maximally dorsiflexed. The drill hole for the 4.75 swivel lock anchor was made in the tibia in the area of the insertion of the anterior inferior tibial-fibular ligament. The hole was then tapped the 4.75 swivel lock was suture was inserted. Another drill hole was made in the anterior surface lateral malleolus in the area of the ligament attachment. The hole was then tapped and then with the ankle remaining reduced the 3.5 mm anchor was inserted with the suture under proper tensioning techniques and then advanced to lock the suture in place. Once completed stabilize the syndesmosis with there is very little movement. The same incision a small 2 hole plate was positioned over the lateral malleolus and adjusted for positioning for placement of the syndesmotic repair. Temporary fixation was done first and then a drill hole for the syndesmotic repair was done through the fibula and across the tibia proximally 1.5 cm from the ankle joint. The straight lateral to medial with slight anterior angulation. The drill was advanced until it penetrated the cortex of the medial side of the tibia and then removed. The Arthrex tight rope was inserted until the button was clear the medial tibial cortex. The button was deployed and the manipulated lie flat against the tibial cortex. The field crop i farmworker was withdrawn and then with the clamp still in place and ankle maximally dorsiflexed lateral button was then tightened until was very firmly against the plate. Once completed ankle was tested for stability under direct fluoroscopic visualization. There is no abnormal movement of the syndesmosis and no gapping of the ankle joint medially. Small screws in place of the overall with 2 hole plate to lock it firmly in place. Final fluoroscopic imaging showed anatomic alignment of the ankle joint with no noted instability. The wound is irrigated thoroughly with antibiotic saline. Deep closure done with 2-0 Vicryl. Subcu closure done for Monocryl. Skin closure done with scott. Arthrex jumpstart dressings were placed over the incisions and a bulky dry dressings applied the right ankle. The tourniquet was released capillary refill return to all digits on the right foot. Patient was then placed in a well- padded, well molded plaster posterior mold/sugar tong splint. Ankle was held in neutral position until splint was dried. Then anesthesia was reversed and the patient was taken recovery with vital signs stable.
[2022-05-08 16:20] VITALS: BP 104/68; PULSE 74
--- NOTE | 2022-05-09 11:34 | P.ANPRN ---
Procedure Note - Anesthesia - Nerve Block Performed Right Popliteal Single Time Out Performed: Yes Date of Procedure: 05/08/22 Procedure Start Time: 10:51 Procedure Stop Time: 10:59 Location of Patient: PreOp Indication: Acute Post-Operative Pain, Requested by Surgeon Sedation Type: Sedate with meaningful contact maintained Preparation: Sterile Prep Position: Left Lateral Needle Types: Pajunk Needle Gauge: 21 Ultrasound used to visualize needle placement: Yes Ultrasound used to observe medication spread: Yes Blood Aspirated: No Pain Paresthesia on Injection Noted: No Resistance on Injection: Normal Image Stored and Saved: Yes Events: Uneventful and Well Tolerated (ropi .5% 20cc plus dexamethasone 4mg)
--- NOTE | 2022-05-09 11:35 | P.ANPRN ---
Procedure Note - Anesthesia - Nerve Block Performed Right Adductor Canal Single Time Out Performed: Yes Date of Procedure: 05/08/22 Procedure Start Time: 11:00 Procedure Stop Time: 11:04 Location of Patient: PreOp Indication: Acute Post-Operative Pain, Requested by Surgeon Sedation Type: Sedate with meaningful contact maintained Preparation: Sterile Prep Position: Supine Needle Types: Pajunk Needle Gauge: 21 Ultrasound used to visualize needle placement: Yes Ultrasound used to observe medication spread: Yes Blood Aspirated: No Pain Paresthesia on Injection Noted: No Resistance on Injection: Normal Image Stored and Saved: Yes Events: Uneventful and Well Tolerated (ropi .5% 20cc plus dexamethasone 4mg)
== END 2022-05-08 16:29 | disposition home or self-care (01) ==
LOC: OR 09:48
PROVIDERS: ATTEND Podiatrist
DX: S82.301A Unspecified fracture of lower end of right tibia, initial encounter for closed fracture (principal); S93.431A Sprain of tibiofibular ligament of right ankle, initial encounter; G89.18 Other acute postprocedural pain; I10 Essential (primary) hypertension; F32.A Depression, unspecified; Z88.8 Allergy status to other drugs, medicaments and biological substances; Z88.0 Allergy status to penicillin; Z79.899 Other long term (current) drug therapy; Z98.890 Other specified postprocedural states
CPT/HCPCS: 27695; 27827; 64447; 73600; J2250; J1100; J0690; J2405; J3010; 64445; 76942; 81025

== ENCOUNTER → 2022-12-18 | Outpatient (CLI) | payer MEDICAID ==
[2022-12-18 09:16] VITALS: BP 174/122; PULSE 75; RESP 16; TEMP 99
--- NOTE | 2022-12-18 14:16 | P.PAINPG ---
PQRS Measure Charge Sheet Comment: HISTORY OF PRESENT ILLNESS: 32 yr old female as a referral from [facility] presents today w severe and chronic R ankle pain secondary to post traumatic arthropathy for evaluation. Pt states pain level is provoked at 8 /10 in intensity, constant, localized in the R ankle, burning in character w shooting pain towards the R knee. Pain is provoked by walking for periods of 15 min or more. Pain is alleviated by PT x 8 wks in Sep 2022, heat, medications (Tyl, Ibu), THC products, topical, repositioning and rest. Oswestry axial pain score at 11. PMH: OA, HTN, SHA, Hypothyroid Disorder, MDD/ Anxiety PSH: RLE Surgery (2022), Adenoidectomy, Tonsillectomy SH: Negative x3 FH: Noncontributory All: See list Meds: See list REVIEW OF ORGAN SYSTEMS: CONSTITUTIONAL: No fevers or chills. No recent weight loss. NEUROLOGICAL: + numbness and tingling along the distal extremities. No seizure disorders or headaches. MUSCULOSKELETAL: + pain PSYCHIATRIC: Denies current depression or suicidal thoughts. Physical Examinations : Constitutional : Cooperative , not in acute distress . Neurologic : Cranial nerve II to XII intact. No focal neurological deficits. Psychiatric : alert & oriented x 3. Matching mood & appropriate affect. Judgment & insight intact. Musculoskeletal : Cervical Spine Motor strength in the deltoid and biceps: Normal right side. Normal Left side Motor strength biceps and the wrist extensors: Normal right side . Normal left side Motor strength in the triceps muscle: Normal right side. Normal left side Deep tendon reflexes: Normal at the biceps. Normal at Brachioradialis. Normal at triceps Vertebral body tenderness to deep palpation over Cervical facet loading test: positive b ilaterally Spurling test: positive bilaterally Neck distraction test: positive bilaterally Sacha sign: positive bilaterally Lumbar spine R ankle medial/ lateral diffuse TTP Motor strength lower extremities ,thigh and legs 5/5 Right side , 5/5 Left side Deep tendon reflexes : Normal Knee Jerk. Normal Ankle Jerk Vertebral body tenderness over Nguyen Test positive Lumbar facet Loading Test: positive Right / positive Left Range of motion of the lumbar spine Flexion 30 degrees, extension 10 degrees Straight Leg Raise test: Left/ Right positive at degree Mela test: positive right / positive left. Severe tenderness over the Sacroiliac joint on the Right / Left sides Gaenslen test: positive bilaterally Seated flexion test: positive bilaterally. Sacral spine : Severe tenderness over the Sacroiliac joint: right side / left side Range of motion: Flexion of the lumbar spine <60 degrees Range of motion: Extension of the lumbar spine <20 degrees Gaenslen's Test positive Oleg's Test positive Mela test: positive right side / left side Thigh Thrust Test Sacral Thrust Test Imaging: X-ray R ankle from 05/08/22 reviewed Assessment/ Plan : R ankle post traumatic arthropathy Recommendation of MRI R ankle re: M19.171. May need a series of injections for optimal pain relief. Risks, benefits of procedure discussed and patient verbalized understanding. Admits to aspirin or anti- coagulant use or medical history of diabetes. Protocol for discontinuation/ continuation of medications whit procedure discussed. Minimal anesthesia provided, if clinically indicated, consisting of Versed and Fentanyl. All questions answered. I have spent greater than 30 minutes on patient care today. Dr Arana was available by phone for the evaluation of this patient. The time was used to review the medical records including relevant urine studies and Prescription history (MAPs), review of the available imaging, evaluation and examination of the patient, coordination of care with the medical staff and if applicable referring physicians, as well as creation of the medical record Home Medications: Ambulatory Orders Drospirenone [Slynd] 4 mg PO DAILY 09/07/20 Desvenlafaxine Succinate [Pristiq] 100 mg PO HS 05/03/22 Dupilumab [Dupixent Pen] 300 mg SQ Q14D 05/03/22 Ibuprofen [Motrin] 800 mg PO Q8H PRN 05/03/22 Levothyroxine Sodium [Synthroid] 50 mcg PO QAM 05/03/22 atenoloL [Atenolol] 100 mg PO BID 05/03/22 hydrOXYzine pamoate [Vistaril] 100 mg PO HS PRN 05/03/22 lisinopriL [Prinivil] 20 mg PO BID 05/08/22 Controlled Substance Measures - Controlled Substance Measures Is patient prescribed a controlled substance at discharge?: No
== END ==
LOC: PNWHC3 07:38
PROVIDERS: ATTEND Specialist
DX: M79.671 Pain in right foot (principal); M12.571 Traumatic arthropathy, right ankle and foot; I10 Essential (primary) hypertension; G47.33 Obstructive sleep apnea (adult) (pediatric); E03.9 Hypothyroidism, unspecified; F41.9 Anxiety disorder, unspecified; F32.9 Major depressive disorder, single episode, unspecified; Z88.0 Allergy status to penicillin; Z91.048 Other nonmedicinal substance allergy status; Z79.899 Other long term (current) drug therapy; Z79.890 Hormone replacement therapy
CPT/HCPCS: 99211

== ENCOUNTER → 2023-01-23 | Outpatient (CLI) | payer MEDICAID ==
--- NOTE | 2023-01-28 11:01 | MR ---
MRI right ankle. HISTORY: Open reduction internal fixation for prior unstable trauma to the right ankle.. COMPARISON: None. TECHNIQUE: Multiecho multiplanar images the right ankle were obtained without contrast. FINDINGS: There are postsurgical changes including fixation screw for fracture of the posterior malleolus an d fixation screws laterally through the fibula into the distal tibia. There is complete tearing of the deltoid ligaments and of both the anterior and posterior tibial fibu lar ligaments. The anterior and posterior talofibular ligaments and calcaneal fibular ligaments are i ntact. There is mild widening of the medial aspect of the ankle mortise. There is marked cartilaginous thinn ing/absence of the articular cartilages of the tibiotalar joint and there is a small cortical defect in the mid distal tibia within the ankle mortise with the adjacent subchondral cyst. There is marked edema in the distal tibia and within the talus. The talonavicular joint is normal as is the sinus Tarsi. The Achilles tendon, the flexor tendons, extensor tendons and peroneus tendons are intact without ten osynovitis or tendon tear or acute injury. There is a small joint effusion. There is mild edema within the medial and lateral soft tissues. IMPRESSION: 1. Postsurgical changes for open reduction internal fixation for a fracture involving the posterior m alleolus and disruption of the posterior and anterior syndesmosis and of the deltoid ligament as desc ribed above. 2. Disruption of the anterior and posterior tibial fibular ligaments and of the deltoid ligaments. 3. Marked osteoarthritic change of the tibiotalar joint with marked cartilaginous thinning and defect s with subchondral cysts and extensive edema in the distal tibia and talus 4. Mild to moderate soft tissue edema in the medial and lateral soft tissues of the ankle. 5. No evidence of tendon injury.
== END | disposition home or self-care (01) ==
LOC: RADMRIMAIN 19:01
PROVIDERS: ATTEND Specialist
DX: S82.891A Other fracture of right lower leg, initial encounter for closed fracture (principal); M19.171 Post-traumatic osteoarthritis, right ankle and foot; R60.0 Localized edema

== ENCOUNTER → 2023-01-29 | Outpatient (CLI) | payer MEDICAID ==
[2023-01-29 08:33] VITALS: BP 177/138; PULSE 75; RESP 15; TEMP 98.2
--- NOTE | 2023-01-29 14:35 | P.PAINPG ---
PQRS Measure Charge Sheet Comment: HISTORY OF PRESENT ILLNESS: 32 yr old female presents today w severe and chronic R ankle pain secondary to post traumatic arthropathy for evaluation of R ankle results. Pt states pain level is provoked at 8 /10 in intensity, constant, localized in the R ankle, burning in character without shooting pain. Pain is provoked by walking for periods of 15 min or more, or palpation. Pain is alleviated by PT x 8 wks in Sep 2022, heat, medications, THC products, topical, repositioning and rest. Oswestry axial pain score at 13. Interventional procedures include Medications include Tyl, Ibu REVIEW OF ORGAN SYSTEMS: CONSTITUTIONAL: No fevers or chills. No recent weight loss. NEUROLOGICAL: + numbness and tingling along the distal extremities. No seizure disorders or headaches. MUSCULOSKELETAL: + pain PSYCHIATRIC: Denies current depression or suicidal thoughts. Physical Examinations : Constitutional : Cooperative , not in acute distress . Neurologic : Cranial nerve II to XII intact. No focal neurological deficits. Psychiatric : alert & oriented x 3. Matching mood & appropriate affect. Judgment & insight intact. Musculoskeletal : Cervical Spine Motor strength in the deltoid and biceps: Normal right side. Normal Left side Motor strength biceps and the wrist extensors: Normal right side . Normal left side Motor strength in the triceps muscle: Normal right side. Normal left side Deep tendon reflexes: Normal at the biceps. Normal at Brachioradialis. Normal at triceps Vertebral body tenderness to deep palpation over Cervical facet loading test: positive bilaterally Spurling test: positive bilaterally Neck distraction test: positive bilaterally Sacha sign: positive bilaterally Lumbar spine R ankle medial/ lateral diffuse TTP Motor strength lower extremities ,thigh and legs 5/5 Right side , 5/5 Left side Deep tendon reflexes : Normal Knee Jerk. Normal Ankle Jerk Vertebral body tenderness over Nguyen Test positive Lumbar facet Loading Test: positive Right / positive Left Range of motion of the lumbar spine Flexion 30 degrees, extension 10 degrees Straight Leg Raise test: Left/ Right positive at degree Mela test: positive right / positive left. Severe tenderness over the Sacroiliac joint on the Right / Left sides Gaenslen test: positive bilaterally Seated flexion test: positive bilaterally. Sacral spine : Severe tenderness over the Sacroiliac joint: right side / left side Range of motion: Flexion of the lumbar spine <60 degrees Range of motion: Extension of the lumbar spine <20 degrees Gaenslen's Test positive Oleg's Test positive Mela test: positive right side / left side Thigh Thrust Test Sacral Thrust Test Imaging: MRI non contrast R Ankle from 01/23/23 reviewed Assessment/ Plan : R ankle post traumatic arthropathy Recommendation of R ankle nerve block. May need a series of injections for optimal pain relief. Risks, benefits of procedure discussed and patient verbalized understanding. Admits to aspirin or anti- coagulant use or medical history of diabetes. Protocol for discontinuation/ continuation of medications whit procedure discussed. Minimal anesthesia provided, if clinically indicated, consisting of Versed and Fentanyl. All questions answered. I have spent greater than 30 minutes on patient care today. Dr Arana was available by phone for the evaluation of this patient. The time was used to review the medical records including relevant urine studies and Prescription history (MAPs), review of the available imaging, evaluation and examination of the patient, coordination of care with the medical staff and if applicable referring physicians, as well as creation of the medical record Home Medications: Ambulatory Orders Drospirenone [Slynd] 4 mg PO DAILY 09/07/20 Desvenlafaxine Succinate [Pristiq] 100 mg PO HS 05/03/22 Dupilumab [Dupixent Pen] 300 mg SQ Q14D 05/03/22 Ibuprofen [Motrin] 800 mg PO Q8H PRN 05/03/22 Levothyroxine Sodium [Synthroid] 50 mcg PO QAM 05/03/22 atenoloL [Atenolol] 100 mg PO BID 05/03/22 hydrOXYzine pamoate [Vistaril] 100 mg PO HS PRN 05/03/22 lisinopriL [Prinivil] 20 mg PO BID 05/08/22 Controlled Substance Measures - Controlled Substance Measures Is patient prescribed a controlled substance at discharge?: No
== END ==
LOC: PNWHC3 07:30
PROVIDERS: ATTEND Specialist
DX: M12.571 Traumatic arthropathy, right ankle and foot (principal); Z91.048 Other nonmedicinal substance allergy status; Z88.0 Allergy status to penicillin
CPT/HCPCS: 99211

== ENCOUNTER 2023-02-08 10:17 | Day surgery (SDC) | payer MEDICAID ==
[2023-02-06 18:23] VITALS: BMI 43.2
[~2023-02-08 10:17] MED LIST changes: -DEXAMETHASONE SOD PHOSPHATE 4 MG/ML 1 ML VIAL IV ONE; -HYDROmorphone 0.5 MG/0.5 ML SYRINGE IVP PRN; -LIDOCAINE 1% (10MG/ML) FOR IV START INTRADERMA PRN; -ONDANSETRON 4 MG/2 ML VIAL IVP ONE; -SCOPOLAMINE 1 MG/72 HR PATCH TRANSDERM ONE
[2023-02-08 10:57] VITALS: RESP 16; TEMP 97
[2023-02-08] MEDS ORDERED: ROPIVACAINE 5MG/ML 20ML VIAL ONE (11:20)
[2023-02-08] MEDS ORDERED: methylPREDNISolone ACETATE 80 MG/ML 1 ML VIAL ONE (11:20)
[2023-02-08 12:00] VITALS: BP 153/119; PULSE 80
--- NOTE | 2023-02-08 17:30 | P.PCN ---
Date of Procedure: 02/08/23 Procedure(s) Performed: preop Diagnosis : 1= chronic pain syndrome right lower extremity (ankle and foot area ) post op Diadnosis :1-chronic pain syndrome right lower extremity ankle and foot area procedure : Right ankle block ( involve block of the five nerves that innervate the ankle 1- saphenous nerve 2 -posterior tibial nerve . 3- superficial peroneal nerve 4- deep peroneal nerve 5- sural nerve under ultrasound guidance complications :none Indication for the procedure: The patient with a history of chronic right foot pain diagnosed with chronic pain syndrome right ankle and foot area patient , for this reason we discussed with the patient the option of doing right ankle block procedure risk and benefit, including but not limited to risk of infection and bleeding, and ALLERGIC reaction to the medication and not complete pain relief discussed with the patient and she agreed with the preceding . Description of the procedure; the right ankle area prepped with chlorhexidine 3 times. Then under strict sterile technique , under ultrasound guidance using the 21-gauge needle first I did the right posterior tibial nerve block the needle placed and directed anteriorly at the cephalic border of the medial malleolus, just medial to the Achilles tendon 5 ML of 0.5% ropivacaine mixed with 20 mg of Depo-Medrol injected after negative aspiration then after that , I did the right saphenous nerve block by injecting 5 ML at the location of the right saphenous nerve using 25-gauge needle 0.5% of roivacaine injected after negative aspiration, then the deep peroneal nerve block done by placing the 25-gauge needle between the tendon of the anterior tibial and the extensor Hallucis longus muscles , a total of 3 mL of 0.5% ropivacaine mixed with 20 mg of dopo-medrol injected after negative aspiration, then after that I blocked the superficial peroneal nerve , by using 25-gauge needle, the skin infiltration of the subcutaneous tissue between the medial malleolus and the lateral malleolus, finally I did the right sural nerve block by injecting 5 ML of 0.5% ropivacaine mixed with 40 mg depomedrol anterior laterally immediately lateral to the Achilles tendon at the cephalic border of the lateral malleolus the ,after negative aspirations, patient tolerated the procedure well without any complication and discharged home in stable condition , and she will follow up pain clinic in 2-4 weeks
== END 2023-02-08 12:07 | disposition home or self-care (01) ==
LOC: ORPAIN 10:17
PROVIDERS: ATTEND Specialist
DX: M79.671 Pain in right foot (principal); G89.4 Chronic pain syndrome
CPT/HCPCS: 81025; 64450; J1040; J2795

== ENCOUNTER → 2023-02-26 | Outpatient (CLI) | payer MEDICAID ==
[2023-02-26 08:36] VITALS: BP 133/79; PULSE 76; RESP 16; TEMP 98.6
--- NOTE | 2023-02-26 13:46 | P.PAINPG ---
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 Pt states she experienced 0 % pain relief x 3 wks s/p procedure. Pt states pain level is provoked at 8 /10 in intensity, constant, localized in the R ankle, burning in character without shooting pain. Pain is provoked by walking for periods of 15 min or more, or palpation. Pain is alleviated by PT x 8 wks in Sep 2022, heat, medications, THC products, topical, repositioning and rest. Interventional procedures include R Ankle NB x1 Medications include Tyl, Ibu REVIEW OF ORGAN SYSTEMS: CONSTITUTIONAL: No fevers or chills. No recent weight loss. NEUROLOGICAL: + numbness and tingling along the distal extremities. No seizure disorders or headaches. MUSCULOSKELETAL: + pain PSYCHIATRIC: Denies current depression or suicidal thoughts. Physical Examinations : Constitutional : Cooperative , not in acute distress . Neurologic : Cranial nerve II to XII intact. No focal neurological deficits. Psychiatric : alert & oriented x 3. Matching mood & appropriate affect. Judgment & insight intact. Musculoskeletal : Cervical Spine Motor strength in the deltoid and biceps: Normal right side. Normal Left side Motor strength biceps and the wrist extensors: Normal right side . Normal left side Motor strength in the triceps muscle: Normal right side. Normal left side Deep tendon reflexes: Normal at the biceps. Normal at Brachioradialis. Normal at triceps Vertebral body tenderness to deep palpation over Cervical facet loading test: positive bilaterally Spurling test: positive bilaterally Neck distraction test: positive bilaterally Sacha sign: positive bilaterally Lumbar spine R ankle medial/ lateral diffuse TTP Motor strength lower extremities ,thigh and legs 5/5 Right side , 5/5 Left side Deep tendon reflexes : Normal Knee Jerk. Normal Ankle Jerk Vertebral body tenderness over Nguyen Test positive Lumbar facet Loading Test: positive Right / positive Left Range of motion of the lumbar spine Flexion 30 degrees, extension 10 degrees Straight Leg Raise test: Left/ Right positive at degree Mela test: positive right / positive left. Severe tenderness over the Sacroiliac joint on the Right / Left sides Gaenslen test: positive bilaterally Seated flexion test: positive bilaterally. Sacral spine : Severe tenderness over the Sacroiliac joint: right side / left side Range of motion: Flexion of the lumbar spine <60 degrees Range of motion: Extension of the lumbar spine <20 degrees Gaenslen's Test positive Oleg's Test positive Mela test: positive right side / left side Thigh Thrust Test Sacral Thrust Test Imaging: MRI non contrast R Ankle from 01/23/23 reviewed Assessment/ Plan : R ankle post traumatic arthropathy Recommendation of medication mangement and followup w orthopedic surgeon. Opiate/ narcotic agreement signed 02/26/23 Pt agreed to be negative for cannabis and ETOH upon routine UDS. Use, side effects, adverse reactions and safe storage discussed. Pt acknowledged understanding. All questions answered. I have spent greater than 30 minutes on patient care today. Dr Arana was available by phone for the evaluation of this patient. The time was used to review the medical records including relevant urine studies and Prescription history (MAPs), review of the available imaging, evaluation and examination of the patient, coordination of care with the medical staff and if applicable referring physicians, as well as creation of the medical record Home Medications: Ambulatory Orders Drospirenone [Slynd] 4 mg PO DAILY 09/07/20 Desvenlafaxine Succinate [Pristiq] 100 mg PO HS 05/03/22 Dupilumab [Dupixent Pen] 300 mg SQ Q14D 05/03/22 Ibuprofen [Motrin] 800 mg PO Q8H PRN 05/03/22 Levothyroxine Sodium [Synthroid] 50 mcg PO QAM 05/03/22 atenoloL [Atenolol] 100 mg PO BID 05/03/22 hydrOXYzine pamoate [Vistaril] 100 mg PO HS PRN 05/03/22 lisinopriL [Prinivil] 20 mg PO DAILY 05/08/22 Pregabalin [Lyrica] 100 mg PO BID 30 Days #30 cap 02/26/23 Controlled Substance Measures - Controlled Substance Measures Is patient prescribed a controlled substance at discharge?: Yes When asked, does pt state using other controlled substances?: No If prescribed controlled substance>3 days was MAPS reviewed?: Yes If Rx opioid, was Start Talking consent form obtained?: Yes Was information provided regarding opioid addiction?: Yes
== END ==
LOC: PNWHC3 07:44
PROVIDERS: ATTEND Specialist
DX: M79.671 Pain in right foot (principal); M12.571 Traumatic arthropathy, right ankle and foot; Z88.0 Allergy status to penicillin; Z91.09 Other allergy status, other than to drugs and biological substances
CPT/HCPCS: 99211

== ENCOUNTER → 2023-05-16 | Outpatient (CLI) | payer MEDICAID ==
[2023-05-16 08:12] VITALS: BP 182/102; PULSE 76; RESP 15; TEMP 97.2
--- NOTE | 2023-05-16 11:02 | P.PAINPG ---
PQRS Measure Charge Sheet Comment: HISTORY OF PRESENT ILLNESS: A 33 yr old female presents today w severe and chronic R ankle pain secondary to post traumatic arthropathy for medication refills. Pt states pain level is provoked at 8 /10 in intensity, constant, localized in the R ankle, burning in character without shooting pain. Pain is provoked by walking for periods of 15 min or more, or palpation. Pain is alleviated by PT x 8 wks in Sep 2022, heat, medications, CBD products, topical, repositioning and rest. Interventional procedures include R Ankle NB x1 Medications include Tyl, Ibu REVIEW OF ORGAN SYSTEMS: CONSTITUTIONAL: No fevers or chills. No recent weight loss. NEUROLOGICAL: + numbness and tingling along the distal extremities. No seizure disorders or headaches. MUSCULOSKELETAL: + pain PSYCHIATRIC: Denies current depression or suicidal thoughts. Physical Examinations : Constitutional : Cooperative , not in acute distress . Neurologic : Cranial nerve II to XII intact. No focal neurological deficits. Psychiatric : alert & oriented x 3. Matching mood & appropriate affect. Judgment & insight intact. Musculoskeletal : Cervical Spine Motor strength in the deltoid and biceps: Normal right side. Normal Left side Motor strength biceps and the wrist extensors: Normal right side . Normal left side Motor strength in the triceps muscle: Normal right side. Normal left side Deep tendon reflexes: Normal at the biceps. Normal at Brachioradialis. Normal at triceps Vertebral body tenderness to deep palpation over Cervical facet loading test: positive bilaterally Spurling test: positive bilaterally Neck distraction test: positive bilaterally Sacha sign: positive bilaterally Lumbar spine R ankle medial/ lateral diffuse TTP Motor strength lower extremities ,thigh and legs 5/5 Right side , 5/5 Left side Deep tendon reflexes : Normal Knee Jerk. Normal Ankle Jerk Vertebral body tenderness over Nguyen Test positive Lumbar facet Loading Test: positive Right / positive Left Range of motion of the lumbar spine Flexion 30 degrees, extension 10 degrees Straight Leg Raise test: Left/ Right positive at degree Mela test: positive right / positive left. Severe tenderness over the Sacroiliac joint on the Right / Left sides Gaenslen test: positive bilaterally Seated flexion test: positive bilaterally. Sacral spine : Severe tenderness over the Sacroiliac joint: right side / left side Range of motion: Flexion of the lumbar spine <60 degrees Range of motion: Extension of the lumbar spine <20 degrees Gaenslen's Test positive Oleg's Test positive Mela test: positive right side / left side Thigh Thrust Test Sacral Thrust Test Imaging: MRI non contrast R Ankle from 01/23/23 reviewed Assessment/ Plan : R ankle post traumatic arthropathy Recommendation of medication mangement and followup w orthopedic surgeon. Opiate/ narcotic agreement signed 02/26/23. Lyrica 100mg #60 w 1 RF. Use, side effects, adverse reactions and safe storage discussed. Pt acknowledged understanding. All questions answered. I have spent greater than 30 minutes on patient care today. Dr Arana was available by phone for the evaluation of this patient. The time was used to review the medical records including relevant urine studies and Prescription history (MAPs), review of the available imaging, evaluation and examination of the patient, coordination of care with the medical staff and if applicable referring physicians, as well as creation of the medical record - Pain Location Right Ankle Non-Pharmacological Interventions: Inactivity, Position/Reposition, Sitting Pharmacological Interventions: Epidural, Scheduled Medication PQRS Narrative: Hx Alcohol Use (MH) No Home Medications: Ambulatory Orders Drospirenone [Slynd] 4 mg PO DAILY 09/07/20 Desvenlafaxine Succinate [Pristiq] 100 mg PO HS 05/03/22 Dupilumab [Dupixent Pen] 300 mg SQ Q14D 05/03/22 Ibuprofen [Motrin] 800 mg PO Q8H PRN 05/03/22 Levothyroxine Sodium [Synthroid] 50 mcg PO QAM 05/03/22 atenoloL [Atenolol] 100 mg PO BID 05/03/22 hydrOXYzine pamoate [Vistaril] 100 mg PO HS PRN 05/03/22 lisinopriL [Prinivil] 20 mg PO DAILY 05/08/22 Pregabalin [Lyrica] 100 mg PO BID 30 Days #60 cap 05/16/23 Controlled Substance Measures - Controlled Substance Measures Is patient prescribed a controlled substance at discharge?: Yes When asked, does pt state using other controlled substances?: No If prescribed controlled substance>3 days was MAPS reviewed?: Yes
== END ==
LOC: PNWHC3 07:29
PROVIDERS: ATTEND Specialist
DX: M12.571 Traumatic arthropathy, right ankle and foot (principal); Z88.0 Allergy status to penicillin; Z91.09 Other allergy status, other than to drugs and biological substances
CPT/HCPCS: 99211

== ENCOUNTER → 2023-08-07 | Outpatient (CLI) | payer MEDICAID ==
--- NOTE | 2023-08-07 03:15 | CT ---
EXAM: CT Right Lower Extremity Without Intravenous Contrast, Ankle CLINICAL HISTORY: ITS.REASON CT Reason: PAIN TECHNIQUE: Axial computed tomography images of the right ankle without intravenous contrast. CTDI is 4 mGy and DLP is 125.2 mGy-cm. This CT exam was performed using one or more of the following dose reduction techniques: automated exposure control, adjustment of the mA and/or kV according to patient size, and/or use of iterative reconstruction technique. Metal artifact from hardware in the distal tibia and fibula. COMPARISON: Ankle MRI 01/23/23 FINDINGS: Bones/joints: Previous ORIF distal tibia and fibula. There is a 1 cm osseous defect in the medial malleolus, has progressed, likely degenerative. Multiple subarticular cysts in the talus as well, have also progressed. A second defect along the distal tibia articular surface is seen just distal to the posterior screw. These findings are chronic. No definite acute osteomyelitis. Severe degenerative change of the ankle joint with osteoporosis. No acute fracture. No dislocation. Soft tissues: Moderate soft tissue thickening of the ankle joint, with small soft tissue calcifications particularly along the medial joint space. Mild superficial cellulitis along the lateral ankle. No definite fluid collection or drainable abscess. IMPRESSION: 1. Progressive degenerative change about the ankle, including multiple articular surface cysts predominantly of the distal tibia and talus. 2. Osteoarthritis and osteoporosis. 3. Soft tissue thickening of the ankle joint with soft tissue calcifications in the medial joint, superficial cellulitis in the lateral joint. 4. No osteomyelitis or abscess.
== END | disposition home or self-care (01) ==
LOC: LABMAIN 00:40
PROVIDERS: ATTEND Orthopaedic Surgery Foot and Ankle Surgery
DX: M19.071 Primary osteoarthritis, right ankle and foot (principal); M81.0 Age-related osteoporosis without current pathological fracture; G90.521 Complex regional pain syndrome I of right lower limb; M79.89 Other specified soft tissue disorders; L03.115 Cellulitis of right lower limb

== ENCOUNTER → 2024-03-22 | Outpatient (CLI) | payer MEDICAID | END | disposition home or self-care (01) | LOC: LABMAIN 19:59 | PROVIDERS: ATTEND Family Medicine | DX: Z53.9 Procedure and treatment not carried out, unspecified reason (principal) ==

== ENCOUNTER → 2024-06-25 | Outpatient (CLI) | payer MEDICAID ==
--- NOTE | 2024-06-25 21:19 | US ---
EXAMINATION TYPE: US venous doppler duplex LE RT DATE OF EXAM: 06/25/2024 9:01 PM COMPARISON: NONE CLINICAL INDICATION: Female, 34 years old with history of pain; patient states surgery on right leg a nd hx seroma. Patient states swelling in right ankle for 1.5 weeks after starting work again. No hx d vt. Not on thinners. takes BC, so concern for clot. No redness or warmth, Pain TECHNIQUE: The lower extremity deep venous system is examined utilizing real time linear array sonog karina with graded compression, color doppler sonography, and spectral doppler. SIDE PERFORMED: Right FINDINGS: VESSELS IMAGED: Common Femoral Vein Deep Femoral Vein Greater Saphenous Vein * Femoral Vein Popliteal Vein Small Saphenous Vein * Proximal Calf Veins (* superficial vessels) Right Leg: Negative for DVT. Unable to visualize distal femoral vein in transverse for compression v iews, however color and spectral waveforms shown. Edema seen at right ankle, Color Doppler imaging sh ows patency of the vessels. Spectral waveforms are within normal limits. IMPRESSION: No ultrasound evidence for deep venous thrombosis. [facility], , 06/25/2024 9:16 PM
== END | disposition home or self-care (01) ==
LOC: LABWHC1 21:03
PROVIDERS: ATTEND Physician Assistant
DX: M79.89 Other specified soft tissue disorders (principal); Z98.890 Other specified postprocedural states; Z87.2 Personal history of diseases of the skin and subcutaneous tissue